=== PATIENT | male | born 2005 | race Caucasian/White ===

== ENCOUNTER 2024-10-30 06:53 | Outpatient (REF) | payer OTHER, SELFPAY ==
--- NOTE | ~2024-10-30 | US_ITS ---
EXAMINATION: US SCROTUM CLINICAL INFORMATION: Scrotal pain.. COMPARISON: None available. TECHNIQUE: A sonogram of the scrotum was performed assessing jones-scale appearance and color Doppler flow. Spectral Doppler analysis of the arterial and venous flow were performed in the testes bilaterally. FINDINGS: RIGHT: Right testicle measures 4.5 x 2.3 x 2.8 cm, volume 15 point mL. Normal echotexture. No solid or cystic lesion. Spectral Doppler analysis of the arterial and venous flow is normal in the right testis. Right epididymal head is normal in size. 0.8 cm cyst in the tail. Right epididymal Doppler flow is normal. 0.2 cm calcification in the scrotum. There is no prominence of the pampiniform plexus during Valsalva maneuvers. Small trace amount of fluid in the scrotal sac. LEFT: Left testicle measures 4.4 x 2.1 x 2.6 cm, volume 12.6 mL. Normal echotexture. No gross solid or cystic lesion. Spectral Doppler analysis of the arterial and venous flow is normal in the left testis. Left epididymal head is normal in size. No prominence of the pampiniform plexus. No free fluid. Left epididymal Doppler flow is normal. US/US scrotum IMPRESSION: No testicular torsion or testicular mass. No varicocele. Trace right-sided hydrocele. Scrotalith, right scrotum. Benign finding.. Electronically signed by: Beny Jimenez MD 10/30/2024 12:13 PM EDT
--- OUTSIDE RECORDS SUMMARY | 2024-10-30 06:56 | XMS_ITS | Clinical Summary ---
Author Organization [facility] Address [address] [place] [address] Phone Care Team Providers Care Compensation Supervisor Name Role Phone Any Lee MD Primary Care Provider + Allergies No known active allergies Medications triamcinolone acetonide 0.1 % cream 08/31/2023 Active acyclovir (ZOVIRAX) 400 MG tablet take 1 tablet by mouth every 8 hours for 7 days 01/12/2024 Active ciprofloxacin-d exAMETHasone (CIPRODEX) otic suspension Place 4 drops into the left ear 2 (two) times a day for 7 days. 7.5 mL 10/08/2024 Active Problems Problem Noted Date Diagnosed Date Subcutaneous nodule 08/23/2023 Well adult exam 08/30/2022 Assessment & Plan (08/30/2022 1:40 PM EDT): Healthy Teen ADLs reviewed Discussed importance of safety in relation to season and age. Discussed sleep, diet, exercise and age appropriate anticipatory guidance. Immunizations reviewed. Return in 1 year for next PE or sooner as needed. Pilar cyst 11/25/2020 08/23/2022 Melanocytic nevi of scalp and neck 11/25/2020 08/23/2022 Skin mole 10/09/2020 08/23/2022 Nasal turbinate hypertrophy 02/28/2018 07/0 04/2022 Mild anxiety 02/28/2018 08/23/2022 Scoliosis 09/02/2016 08/23/2022 Dermatitis, atopic 09/10/2011 08/23/2022 Encounters Date Type Department Care Team Description 10/24/2024 3:39 PM EDT - 10/24/2024 5:35 PM EDT Emergency [facility] [address] [place] [id number] Discharge Disposition: Home or Self Care 10/08/2024 12:00 PM EDT Office Visit [facility] [address] [place] [address] Adri Rothman PA-C Acute otitis externa of left ear, unspecified type (Primary Dx); Acute serous otitis media of left ear, recurrence not specified 08/30/2024 Telephone [facility] Otolaryngology [employer] [address] [place] [id number] Uziel Mccoy MD Follow-up 08/27/2024 10:30 AM EDT Office Visit [facility] Otolaryngology [employer] [address] [place] [phone] Uziel Mccoy MD Injury of nose, initial encounter (Primary Dx); Nasal deformity 08/20/2024 12:30 PM EDT Office Visit [facility] [address] [place] [address] Francisco Basurto PA-C Nasal injury (Primary Dx); Open fracture of nasal bone, initial encounter 08/20/2024 Telephone [facility] Otolaryngology [employer] [address] [facility] [address] [place] [address] Uziel Mccoy MD Facial Injury from Last 3 Months Immunizations Immunization Administration Dates Next Due COVID-19 (Pre-12/13) Pfizer Vaccine, mRNA, PF 07/28/2020,07/07/2020 DTaP 09/04/2009, 7,02/12/2005,12/09,2004 HPV9 09/07/2018,09/07/2017 Hepatitis A, Unspecified 07/31/2007,03/25/2006 Hepatitis B, unspecified formulation 05/27/2005, 2004,2004 Hib, unspecified formulation 11/18/2005, 02/12/2005,2004,10/14 INFLUENZA, SPLIT VIRUS, TRIV ALENT W/ PRESERVATIVE IM 12/02/2014,11/14/2013,11/24/2012 IPV 09/04/2009, 5,2004,10/14 Influenza Quadrivalent MDCK w/Preservative IM 01/19/2022 Influenza Quadrivalent Prese rvative Free IM 12/27/2020,02/18/2020,12/13/2018,11/11 Influenza Quadrivalent w/ Pr eservative IM 11/05/2017,11/19/2016 Influenza, Unspecified Formulation 11/02,11/20/2010,11/19/2009,03/07,11/30/2007,12/10/2006,11/18/2005 ,02/12/2005 MMR 09/03/2008,11/18/2005 Meningococcal B, recombinant (MenB-FHbp) 10/12/2021,10/09/2020 Meningococcal MCV4P 10/09/2020,09/02/2016 Pneumococcal, Unspecified Formulation ,02/12/2005,2004,10/14 Tdap 09/02/2016 Varicella 09/03/2008,03/25/2006 Social History Tobacco Use Types Packs/Day Years Used Date Smoking Tobacco: Never Smokeless Tobacco: Never Tobacco Cessation:Counseling Given: Not Answered Alcohol Use Standard Drinks/Week Comments Yes 0 (1 standard drink = 0.6 oz pur e alcohol) Education Answer Date Recorded Are you interested in more education? Not on santhosh e 06/18/2022 Are you concerned about learning? Not on file 06/18/2022 No 06/18/2022 No 06/18/2022 Digital Access Answer Date Recorded No 07/20/2022 No 07/20/2022 Reliable internet access at home? Not on file 07/20/2022 Device with a working camera? Not on file Intimate Partner Violence Answer Date R ecorded Are you denied basic needs s uch as food, clothing, or medical care? No 10/24/2024 In the past 12 months have y ou been in a relationship with a person who hurts, threatens, or tries to control you? No 10/24/2024 Are you denied basic needs s uch as food, clothing, or medical care? No 10/24/2024 In the past 12 months have y ou been in a relationship with a person who hurts, threatens, or tries to control you? No 10/24/2024 Sex and Gender Information Value Date Recorded Sex Assigned at Male 10/24/2024 12:34 PM EDT Legal Sex Male 12:02 PM EDT Gender Identity Male 10/24/2024 12:34 PM EDT Sexual Orientation Straight 10/24/2024 12 :34 PM EDT Last Filed Vital Signs Vital Sign Reading Time Taken Comments Blood Pressure 132/79 10/24/2024 2:29 PM EDT Pulse 85 10/24/2024 2:29 PM EDT Temperature 36.8 C (98.2 F) 10/24/2024 2:29 PM EDT Respiratory Rate 18 10/24/2024 2:29 PM EDT Oxygen Saturation 98% 10/24/2024 2:29 PM EDT Inhaled Oxygen Concentration - - Weight 83.9 kg (185 lb) 10/24/2024 12:36 PM EDT Height 195.6 cm (6' 5 ) 10/24/2024 12:36 PM EDT Body Mass Index 21.94 10/24/2024 12:36 PM EDT Plan of Treatment Upcoming Encounters Date Type Department Care Team (Late st Contact Info) Description 10/31/2024 8:30 AM EDT Office Visit [facility] Urology [address] [place] [address] Rodney Lezama MD [address] [place] [address] Health Maintenance Due Date Last Done Comments ADOLESCENT UNIVERSAL LIPID SCREENING 2021 HEPATITIS C SCREENING 2022 HIV ONE-TIME SCREENING (18-65 YEARS) 2022 DEPRESSION SCREENING 08/27/2023 08/26/2022 DEVELOPMENTAL/BEHAVIORAL SCREENING (PHQ, PSC, or SWYC) 08/27/2023 08/26/2022, 08/26/2022 INFLUENZA VACCINE (#1) 2024 , 12/27/2020, 02/18/2020, Additional history exists COVID-19 VACCINE ( season) 2024 03/20/2021, 07/28/2020, 07/07/2020 SMOKING Hx and SMOKELESS TOBACCO SCREENING 10/24/2025 10/24/2024 COMBINED DTaP,Tdap,Td (7 - Td or Tdap) 09/02/2026 09/02/2016, 09/04/2009, 03/25/2006, Additional history exists HIB VACCINES Completed 11/18/2005, 01/22, 2004, Additional history exists PNEUMOCOCCAL VACCINES (0-49 years) Aged Out 11/18/2005, 02/12/2005, 2004, Additional history exists No longer eligible based on patient's age to complete this topic HEPATITIS A VACCINES Completed 07/31/2007, 03/25/19 07 MMR VACCINES Completed 09/03/2008, 11/18/2005 VARICELLA VACCINES Completed 09/03/2008, 03/25/2006 HPV VACCINES Completed 09/07/2018, 09/07/2017 MENINGOCOCCAL VACCINES (ACWY) Completed 10/09/2020, 09/02/2016 MENINGOCOCCAL VACCINES (B) Completed 10/12/2021, Medical Devices Not on file Procedures Procedure Name Priority Date/Time Associated Diagnosis Comments US SCROTUM AND TESTICLES, US ABDOMEN ARTERY/VEINS DUPLEX LIMITED Routine 10/24/2024 12:57 PM EDT XR NASAL BONES 08/20/2024 12:58 PM EDT from Last 3 Months Results * US SCROTUM AND TESTICLES, US ABDOMEN ARTERY/VEINS DUPLEX LIMITED (10/24/2024 12:57 PM EDT) Anatomical Region Laterality Modality Pelvis, Scrotum/Testes, Testes U ltrasound 10/24/2024 1:52 PM EDT Impressions 10/24/2024 2:07 PM EDT 1. No acute scrotal findings. 2. Normal appearance of the testes without evidence of torsion. ATTESTATION: Julio Batista as teaching physician, have reviewed the images for this case and if necessary edited the report originally created by Renato Faulkner. Narrative 10/24/2024 2:07 PM EDT US SCROTUM AND TESTICLES, US ABDOMEN ARTERY/VEINS DUPLEX LIMITED Referring clinician's provided indication for this examination in [facility]: Scrotal Swelling (Right) TECHNIQUE: Scrotal Ultrasound. Color and spectral Doppler performed. COMPARISON: None. FINDINGS: Right hemiscrotum: Testicle: 4.5 x 2.2 x 2.8 cm Normal. No focal lesions. Doppler: Normal intratesticular blood flow with color Doppler. Epididymis: Normal. Varicocele: None. Hydrocele: None. Left hemiscrotum: Testicle: 4.7 x 2.0 x 2.6 cm Normal. No focal lesions. Doppler: Normal intratesticular blood flow with color Doppler. Epididymis: Normal. Varicocele: None. Hydrocele: None. Procedure Note Julio Echevarria MD - 10/24/2024 US SCROTUM AND TESTICLES, US ABDOMEN ARTERY/VEINS DUPLEX LIMITED Referring clinician's provided indication for this examination in [facility]:Scrotal Swelling (Right) TECHNIQUE: Scrotal Ultrasound. Color and spectral Doppler performed. COMPARISON: None. FINDINGS: Right hemiscrotum: Testicle: 4.5 x 2.2 x 2.8 cm Normal. No focal lesions. Doppler: Normal intratesticular blood flow with color Doppler. Epididymis: Normal. Varicocele: None. Hydrocele: None. Left hemiscrotum: Testicle: 4.7 x 2.0 x 2.6 cm Normal. No focal lesions. Doppler: Normal intratesticular blood flow with color Doppler. Epididymis: Normal. Varicocele: None. Hydrocele: None. IMPRESSION: 1. No acute scrotal findings. 2. Normal appearance of the testes without evidence of torsion. ATTESTATION: Julio Batista as teaching physician, have reviewed theimages for this case and if necessary edited the report originally createdby Renato Faulkner. Malissachris Barboza Sean AMEZCUAC IMG US SCROTUM/PENIS Final Result * XR Nasal Bones (08/20/2024 12:58 PM EDT) Anatomical Region Laterality Modality Face XR Diagnostic 08/20/2024 12:5 8 PM EDT Narrative 08/20/2024 1:15 PM EDT [facility] Department of Radiology NOSE3 Nasal Bones Comp (min 3 V) History: 19-year-old man status post fall yesterday with nasal pain and deformity. Impression: 3 views demonstrate normal bony mineralization. There is a mid nasal bone fracture with 3 mm depression of the distal fracture fragment on the proximal fracture fragment. The anterior maxillary spine is intact. The visualized paranasal sinuses are clear. Reported By: Josh Chambers MD Signed By: Josh Chambers MD Procedure Note Josh Chambers MD - 08/20/2024 [facility] Department of Radiology NOSE3 Nasal Bones Comp (min 3 V) History: 19-year-old man status post fall yesterday with nasal pain and deformity. Impression: 3 views demonstrate normal bony mineralization. There is a mid nasal bone fracture with 3 mm depression of the distal fracture fragment on the proximal fracture fragment. The anterior maxillary spine is intact. The visualized paranasal sinuses are clear. Reported By: Josh Chambers MD Signed By: Josh Chambers MD Adri Rothman PA-C IMG XR HEAD AND SHUNT SERIES Final Result from Last 3 Months Insurance [employer] [facility] [place] [address] [place] [address] [employer] [facility] [place] [address] [facility] [place] [address] [facility] [place] [address] [facility] [place] [address] [facility] [place] [address] [facility] Care Teams Compensation Supervisor Relationship Specialty Start Date End Date Any Lee MD [facility] [phone] [email or web address] PCP - General Family Medicine 08/20/24 Additional Source Comments The information contained in this document represents components of the legal health record. It is not the complete legal health record.[facility]
== END 2024-10-30 06:54 | disposition home or self-care (01) ==
LOC: HO.UMASIMG 06:53
PROVIDERS: Visit Provider Pediatrics
DX: N50.82 Scrotal pain (principal)
CPT/HCPCS: 76870

== ENCOUNTER → 2024-10-30 11:27 | Outpatient (BNV) | payer OTHER, SELFPAY | PROVIDERS: Visit Provider Radiology Diagnostic Radiology | DX: N50.819 Testicular pain, unspecified (principal) | CPT/HCPCS: 76870 ==